=== PATIENT | male | born 1950 | race Caucasian/White ===

== ENCOUNTER → 2016-04-08 | Outpatient (CLI) | payer OTHER ==
[~2016-04-08] MED LIST: GADOBUTROL 10 ML VIAL IVP ONE
[2016-04-08 14:16] LABS: CREATININE 0.8 mg/dL (0.7-1.3); GLOMERULAR FILTRATION RATE > 60
--- NOTE | 2016-04-08 15:46 | MR ---
MRI of the Brain and Pituitary Without and With Contrast Enhancement History: Reported history of pituitary dysfunction. Assess for mass. Comparison: None available. Technique: Sagittal T1, axial FLAIR, and axial postcontrast T1-weighted MR series through the entire brain with the uneventful intravenous administration of 8 mL of Gadavist contrast. Additional thin-sl ice sagittal and coronal pre- and postcontrast T1-weighted MR series through the pituitary gland. Findings: The pituitary is normal size. No pituitary mass is identified. No enhancing lesions are jeanie ntified. There is mild diffuse cerebral atrophy with scattered nonspecific white matter FLAIR hyperin tensities most likely related to chronic microvascular ischemic gliosis. There is no midline shift. 1 .7 x 2.7 cm CSF density structure at the anterior aspect of the left temporal lobe may be related to an arachnoid cyst. There is no visible hemorrhage. The cerebellar tonsils are normally positioned. Th ere is no evidence of infarct. Mild mucous membrane thickening is present in the paranasal sinuses. T he mastoid air cells are clear. Impression: 1. Normal MR appearance of the pituitary. 2. Mild atrophy with scattered white matter change most likely related to chronic microvascular ische vlad gliosis. 3. Possible arachnoid cyst in the left temporal lobe. 4. Additional findings as above.
== END ==
LOC: FIMAGING 13:31
DX: Z86.39 Personal history of other endocrine, nutritional and metabolic disease (principal)
CPT/HCPCS: 70553; A9585

== ENCOUNTER → 2016-08-30 | Outpatient (CLI) | payer OTHER | LOC: FIMAGING 11:49 | DX: M25.562 Pain in left knee (principal) ==

== ENCOUNTER → 2016-11-22 | Outpatient (CLI) | payer OTHER | LOC: FIMAGING 16:30 | PROVIDERS: ATTEND Radiology Diagnostic Radiology | DX: J34.89 Other specified disorders of nose and nasal sinuses (principal) ==